=== PATIENT | male | born 1970 | race Two or more races ===

== ENCOUNTER 2018-08-22 13:00 | Outpatient (CLI) | payer MEDICARE, MEDICAID ==
[~2018-08-22 13:00] MED LIST: ALBU6.7H3 IH; BENZ1TAB7 PO; CLA10T PO; COL100C PO; ESOM40CA PO; FLO0.4C PO; FLUO20CA39 PO; HAL5T PO; METF500T PO; MILK200C4 PO; MULT-342 PO; NORCO10T PO; PAT0.1OS OP; QUET-1 PO; RES15C PO; SITA1TAB2 PO
[2018-08-22 14:27] LABS: BASOPHILS % (AUTO) 0.4 % (0-1); EOSINOPHILS # (AUTO) 0.3 X10'3 (0-0.9); HEMATOCRIT 41.4 % (42.0-52.0); HEMOGLOBIN 13.8 g/dl (14.0-17.9); LYMPHOCYTES # (AUTO) 2.6 X10'3 (1.1-4.8); LYMPHOCYTES % (AUTO) 36.8 % (21-51); MEAN CORPUSCULAR HEMOGLOBIN 27.1 PG (27.0-31.0); MEAN CORPUSCULAR HGB CONC 33.3 % (33.0-36.5); MEAN CORPUSCULAR VOLUME 81.4 FL (78-98); MEAN PLATELET VOLUME 8.6 FL (7.4-10.4); MONOCYTES # (AUTO) 0.5 X10'3 (0-0.9); MONOCYTES % (AUTO) 7.4 % (2-12); NEUTROPHILS # (AUTO) 3.6 X10'3 (1.8-7.7); NEUTROPHILS % (AUTO) 51.4 % (42-75); PLATELET COUNT 212 X10'3 (140-440); RED BLOOD COUNT 5.08 X10'6 (4.70-6.10); RED CELL DISTRIBUTION WIDTH 14.6 % (11.5-14.5); WHITE BLOOD COUNT 7.1 X10'3 (4.5-11.0)
[2018-08-22 14:50] LABS: INR 1.1 INR; PARTIAL THROMBOPLASTIN TIME 26 SECONDS (22-32); PROTHROMBIN TIME 10.7 SECONDS (9.0-12.0)
[2018-08-22 14:57] LABS: ALANINE AMINOTRANSFERASE 37 U/L (12-78); ALBUMIN 4.5 G/DL (3.4-5.0); ALBUMIN/GLOBULIN RATIO 1.5 (1.1-1.5); ALKALINE PHOSPHATASE 76 IU/L (46-116); ANION GAP 11 (8-16); ASPARTATE AMINO TRANSFERASE 20 U/L (10-37); BILIRUBIN,TOTAL 0.3 MG/DL (0.1-1.0); BLOOD UREA NITROGEN 9 MG/DL (7-18); BUN/CREATININE RATIO 10.5 (5.4-32.0); CALCIUM 8.7 MG/DL (8.5-10.1); CHLORIDE 99 MMOL/L (99-107); CREATININE 0.86 MG/DL (0.60-1.10); GLUCOSE 110 MG/DL (70-104); SODIUM 137 MMOL/L (135-145); TOTAL CARBON DIOXIDE 26.9 MMOL/L (24-32); TOTAL PROTEIN 7.6 G/DL (6.4-8.2); eGFR > 90 ML/MIN
[2018-08-22 15:18] LABS: PLATELET FUNCTION (ADP) 136 SECONDS (63-104)
== END 2018-08-22 23:59 | disposition home or self-care (01) ==
LOC: LAB 13:00
PROVIDERS: ATTEND Otolaryngology
DX: D69.1 Qualitative platelet defects (principal); I10 Essential (primary) hypertension; J45.909 Unspecified asthma, uncomplicated; E11.9 Type 2 diabetes mellitus without complications; Z88.8 Allergy status to other drugs, medicaments and biological substances; Z79.899 Other long term (current) drug therapy
CPT/HCPCS: 36415; 80053; 85025; 85576; 85610; 85730

== ENCOUNTER 2018-11-04 13:44 | Outpatient (CLI) | payer MEDICARE, MEDICAID ==
[2018-11-04 14:32] LABS: BASOPHILS % (AUTO) 0.4 % (0-1); EOSINOPHILS # (AUTO) 0.2 X10'3 (0-0.9); EOSINOPHILS % (AUTO) 2.2 % (0-6); HEMATOCRIT 38.6 % (42.0-52.0); HEMOGLOBIN 12.9 g/dl (14.0-17.9); LYMPHOCYTES # (AUTO) 2.5 X10'3 (1.1-4.8); LYMPHOCYTES % (AUTO) 27.6 % (21-51); MEAN CORPUSCULAR HEMOGLOBIN 26.6 PG (27.0-31.0); MEAN CORPUSCULAR HGB CONC 33.4 g/dL (33.0-36.5); MEAN CORPUSCULAR VOLUME 79.6 FL (78-98); MEAN PLATELET VOLUME 7.7 FL (7.4-10.4); MONOCYTES # (AUTO) 0.8 X10'3 (0-0.9); MONOCYTES % (AUTO) 8.7 % (2-12); NEUTROPHILS # (AUTO) 5.5 X10'3 (1.8-7.7); NEUTROPHILS % (AUTO) 61.1 % (42-75); PLATELET COUNT 270 X10'3 (140-440); RED BLOOD COUNT 4.85 X10'6 (4.70-6.10); RED CELL DISTRIBUTION WIDTH 13.7 % (11.5-14.5)
[2018-11-04 14:43] LABS: PARTIAL THROMBOPLASTIN TIME 32 SECONDS (22-32); PROTHROMBIN TIME 10.6 SECONDS (9.0-12.0)
[2018-11-04 14:47] LABS: ALANINE AMINOTRANSFERASE 32 U/L (12-78); ALBUMIN 4.2 G/DL (3.4-5.0); ALBUMIN/GLOBULIN RATIO 1.2 (1.1-1.5); ALKALINE PHOSPHATASE 99 IU/L (46-116); ANION GAP 7 (8-16); ASPARTATE AMINO TRANSFERASE 18 U/L (10-37); BILIRUBIN,TOTAL 0.2 MG/DL (0.1-1.0); BLOOD UREA NITROGEN 11 MG/DL (7-18); BUN/CREATININE RATIO 13.4 (5.4-32.0); CALCIUM 9.2 MG/DL (8.5-10.1); CHLORIDE 98 MMOL/L (99-107); CREATININE 0.82 MG/DL (0.60-1.10); GLUCOSE 122 MG/DL (70-104); POTASSIUM 4.2 MMOL/L (3.5-5.1); SODIUM 133 MMOL/L (135-145); TOTAL CARBON DIOXIDE 27.9 MMOL/L (24-32); TOTAL PROTEIN 7.8 G/DL (6.4-8.2); eGFR > 90 ML/MIN
[2018-11-04 16:37] LABS: PLATELET FUNCTION (ADP) 183 SECONDS (63-104)
== END 2018-11-04 23:59 | disposition home or self-care (01) ==
LOC: LAB 13:44
PROVIDERS: ATTEND Otolaryngology
DX: D69.1 Qualitative platelet defects (principal); I10 Essential (primary) hypertension; J45.909 Unspecified asthma, uncomplicated; E11.9 Type 2 diabetes mellitus without complications; Z87.891 Personal history of nicotine dependence; Z88.8 Allergy status to other drugs, medicaments and biological substances
CPT/HCPCS: 36415; 80053; 85025; 85576; 85610; 85730

== ENCOUNTER 2018-11-10 01:48 | Emergency (ER) | payer MEDICARE, MEDICAID ==
[~2018-11-10] VITALS: Ht 175.3 cm; Wt 118.2 kg
[2018-11-10] MEDS ORDERED: normal saline 1000ML IV soln IVB ONE (02:00)
[2018-11-10] MEDS ORDERED: naloxone 2mg/2ml inj IV ONE (02:00)
[2018-11-10 02:48] LABS: BASOPHILS # (AUTO) 0.1 X10'3 (0-0.2); BASOPHILS % (AUTO) 0.5 % (0-1); EOSINOPHILS # (AUTO) 0.3 X10'3 (0-0.9); HEMATOCRIT 36.9 % (42.0-52.0); HEMOGLOBIN 12.2 g/dl (14.0-17.9); LYMPHOCYTES # (AUTO) 3.2 X10'3 (1.1-4.8); LYMPHOCYTES % (AUTO) 22.7 % (21-51); MEAN CORPUSCULAR HEMOGLOBIN 26.5 PG (27.0-31.0); MEAN CORPUSCULAR VOLUME 80.3 FL (78-98); MEAN PLATELET VOLUME 8.1 FL (7.4-10.4); MONOCYTES # (AUTO) 1.5 X10'3 (0-0.9); MONOCYTES % (AUTO) 10.4 % (2-12); NEUTROPHILS % (AUTO) 64.4 % (42-75); PLATELET COUNT 309 X10'3 (140-440); RED CELL DISTRIBUTION WIDTH 13.9 % (11.5-14.5)
[2018-11-10 03:02] LABS: ALANINE AMINOTRANSFERASE 41 U/L (12-78); ALBUMIN 3.9 G/DL (3.4-5.0); ALKALINE PHOSPHATASE 96 IU/L (46-116); ANION GAP 9 (8-16); ASPARTATE AMINO TRANSFERASE 29 U/L (10-37); BILIRUBIN,TOTAL 0.3 MG/DL (0.1-1.0); BLOOD UREA NITROGEN 17 MG/DL (7-18); BUN/CREATININE RATIO 20.5 (5.4-32.0); CALCIUM 8.8 MG/DL (8.5-10.1); CHLORIDE 96 MMOL/L (99-107); CREATININE 0.83 MG/DL (0.60-1.10); ETHANOL < 0.010 GM/DL (0.0-0.010); GLUCOSE 143 MG/DL (70-104); POTASSIUM 3.4 MMOL/L (3.5-5.1); SODIUM 132 MMOL/L (135-145); TOTAL CARBON DIOXIDE 27.3 MMOL/L (24-32); TOTAL PROTEIN 7.8 G/DL (6.4-8.2); eGFR > 90 ML/MIN
--- NOTE | 2018-11-10 03:03 | NUR ---
PT HAD SLEEP MEDICATIONS OF COGENTIN AND SEROZAKL RC AND HIS MEDICATIONS ARE LOCKED UP BY HIS WHO SAYS HE COULDN'T HAVE OD.
[2018-11-10 03:04] LABS: CLARITY,URINE CLEAR (Clear); COLOR,URINE YELLOW (Yellow); GLUCOSE, URINE NEGATIVE (Neg); KETONES,URINE NEGATIVE (Neg); LEUKOCYTE ESTERASE ,URINE NEGATIVE (Neg); NITRITES, URINE NEGATIVE (Neg); OCCULT BLOOD,URINE NEGATIVE (Neg); PH,URINE 5.5 (4.8-8.0); PROTEIN,URINE TRACE mg/dl (Neg); UROBILINOGEN,URINE 0.2 E.U/dL (0.2-1.0)
[2018-11-10 03:06] LABS: INR 1.1 INR; PARTIAL THROMBOPLASTIN TIME 30 SECONDS (22-32); PROTHROMBIN TIME 10.9 SECONDS (9.0-12.0)
--- NOTE | 2018-11-10 03:11 | NUR ---
PER PT , PT HAS BEEN HAVING PERIODS OF INSOMNIA FOR PAST 5 DAYS, HE ALSO HAS A HX OF SCHIZOPRENIA, PT REPORTS PATIENT HAS BEEN HAVING BIZARE BEHAVIOR THE PAST FEW NIGHTS INCLUDING HALLIUCINATIONS. SHE DIDN'T GIVE HIM ALL HIS HS MEDICATIONS BECAUSE SHE WAS WORRIED HE WOULD STOP BREATHING. PT IS STARTING TO WAKE UP MORE AND IS NOW OPENING HIS EYE SPONTANEOUSLY.
[2018-11-10 03:12] LABS: UA COLLECTION TYPE STRAIGHT CATH
[2018-11-10 03:13] LABS: BACTERIA,URINE FEW /HPF (Neg); MUCUS STRANDS FEW /LPF (Neg); RBC,URINE 0-2 /HPF (0-2); SQUAMOUS EPITHELIAL CELL,UR FEW /LPF (FEW); WBC,URINE 0-4 /HPF (0-4)
[2018-11-10 03:17] LABS: URINE AMPHETAMINE SCREEN NEGATIVE (Neg); URINE BARBITUATE SCREEN NEGATIVE (Neg); URINE BENZODIAZEPINES SCREEN NEGATIVE (Neg); URINE CANNABINOID SCREEN NEGATIVE (Neg); URINE COCAINE SCREEN NEGATIVE (Neg); URINE METHADONE SCREEN NEGATIVE (Neg); URINE OPIATE SCREEN NEGATIVE (Neg); URINE PHENCYCLIDINE SCREEN NEGATIVE (Neg)
--- NOTE | 2018-11-10 03:44 | NUR ---
PT PHONE NUMBER : [phone]
[2018-11-10] MEDS ORDERED: CefTRIAXone/D5W-Rocephin 1gm 50 ML IV ONE (03:45)
[2018-11-10] MEDS ORDERED: ARMO250T4 PO (03:49)
[2018-11-10] MEDS ORDERED: NAPR-56 PO (03:49)
[2018-11-10] MEDS ORDERED: ARIP5TAB4 PO (03:49)
[2018-11-10] MEDS ORDERED: BUSP10TA11 PO (03:49)
[2018-11-10] MEDS ORDERED: DIVA500T9 PO (03:49)
[2018-11-10] MEDS ORDERED: LINA290C PO (03:49)
[2018-11-10] MEDS ORDERED: DUTA0.5C40 PO (03:49)
[2018-11-10] MEDS ORDERED: PER10325T PO (03:49)
[2018-11-10] MEDS ORDERED: CEPH250T PO (03:49)
[2018-11-10] MEDS ORDERED: normal saline 1000ML IV soln IV ONE (03:55)
[2018-11-10] MEDS ORDERED: clindamycin 600mg/D5W 50ml 50 ML IV ONE (03:55)
[2018-11-10 04:21] LABS: ABG BASE EXCESS -0.6 mmol/L (-2.0-3.0); ABG HCO3 24.3 mmol/L (22.0-26.0); ABG OXYGEN SATURATION 95.1 % (95-98); ABG PH (T) 7.399 (7.350-7.450); ABG PO2 (T) 91.5 mmHg (83-108); FCOHb 0.1 % (0.5-1.5); FMetHb 0.3 % (0.3-1.12); FO2Hb 94.7 % (94-100); PATIENT TEMPERATURE 36.6; TOTAL HEMOGLOBIN 11.8 G/dl (14.0-18.0)
--- NOTE | 2018-11-10 04:47 | NUR ---
MD LEE AT BEDSIDE FOR EVALUATION, PER MD LEE PT DOESN'T MEET INPATIENT CRITERIA AT THIS TIME.
--- NOTE | 2018-11-10 05:18 | NUR ---
PT MORE ALERT AND IS REQUESTING TO GO HOME, PT APPEARS TO BE LUCID, GCS 14, HE STATES HE HAS BEEN HAVING INSOMNIA AND TOOK HIS NIGHT TIME PILLS. PT DENIES SI.
[2018-11-10 05:31] VITALS: BP 179/97
[2018-11-10] MEDS ORDERED: iohexol 300mg/ml 100ml inj. ONE (05:41)
--- NOTE | 2018-11-10 07:05 | NUR ---
PATIENT AWAKE AND ALERT. TRYING TO GET OFF GURNEY AND STATES HE NEEDS TO GO TO THE BATHROOM FOR BOWEL MOVEMENT. PULLED OUT IV AND BLEEDING STOPPED WITH GAUZE DRESSING. CASILLAS CATH REMAINS INTACT AND DRAINING LARGE AMOUNTS OF YELLOW URINE. RESP SONOROUS AND SNORTY. PATIENT STATES HE HAD SURGERY ON HIS SINUSES A FEW DAYS AGO AND USUALLY SLEEPS WITH A CPAP AT HOME. COOPERATIVE WITH CARE. WALKED TO THE BATHROOM WITH STEADY GAIT.
[2018-11-10] MEDS ORDERED: albuterol 2.5 MG/3 ML nebule NEB ONE (07:50)
[2018-11-10] MEDS ORDERED: AMOX-422 PO (09:36)
--- NOTE | 2018-11-10 10:45 | NUR ---
HERE FOR DISCHARGE. DISCUSSED DC INSTRUCTIONS WITH PATIENT AND . DEPARTED AMB IN GOOD CONDITION.
== END 2018-11-10 10:48 | disposition home or self-care (01) ==
LOC: ER 01:49
DX: R41.82 Altered mental status, unspecified (principal); D72.829 Elevated white blood cell count, unspecified; F20.0 Paranoid schizophrenia; R22.0 Localized swelling, mass and lump, head; G89.29 Other chronic pain; F31.9 Bipolar disorder, unspecified; Z88.8 Allergy status to other drugs, medicaments and biological substances; Z79.899 Other long term (current) drug therapy
CPT/HCPCS: 36415; 36600; 70450; 70487; 71045; 80053; 80305; 80320; 81001; 82803; 82948; 83605; 85018; 85025; 85610; 85730; 87040; 93005; 94640; 94760; 96361; 96365; 96368; 96375; 99285; J0696; J2310; J7030; P9612; Q9967; 99284; J3490

== ENCOUNTER 2019-01-27 20:33 | Emergency (ER) | payer MEDICARE, MEDICAID ==
[~2019-01-27] VITALS: Ht 167.6 cm; Wt 100.0 kg
[~2019-01-27 20:33] MED LIST changes: -ALBU6.7H3 IH; +ARIP5TAB4 PO; +ARMO250T4 PO; +BUSP10TA11 PO; +CEPH250T PO; -COL100C PO; +DIVA500T9 PO; +DUTA0.5C40 PO; -FLO0.4C PO; +LINA290C PO; -METF500T PO; +NAPR-56 PO; -NORCO10T PO; -PAT0.1OS OP; +PER10325T PO; -RES15C PO; -SITA1TAB2 PO
[2019-01-27 21:24] LABS: BASOPHILS # (AUTO) 0.1 X10'3 (0-0.2); BASOPHILS % (AUTO) 0.4 % (0-1); EOSINOPHILS # (AUTO) 0.2 X10'3 (0-0.9); EOSINOPHILS % (AUTO) 1.5 % (0-6); HEMATOCRIT 35.7 % (42.0-52.0); HEMOGLOBIN 12.2 g/dl (14.0-17.9); LYMPHOCYTES # (AUTO) 1.7 X10'3 (1.1-4.8); LYMPHOCYTES % (AUTO) 13.9 % (21-51); MEAN CORPUSCULAR HEMOGLOBIN 27.5 PG (27.0-31.0); MEAN CORPUSCULAR HGB CONC 34.2 g/dL (33.0-36.5); MEAN CORPUSCULAR VOLUME 80.3 FL (78-98); MEAN PLATELET VOLUME 8.5 FL (7.4-10.4); MONOCYTES # (AUTO) 1.3 X10'3 (0-0.9); MONOCYTES % (AUTO) 10.5 % (2-12); NEUTROPHILS # (AUTO) 9.2 X10'3 (1.8-7.7); NEUTROPHILS % (AUTO) 73.7 % (42-75); PLATELET COUNT 179 X10'3 (140-440); RED BLOOD COUNT 4.45 X10'6 (4.70-6.10); RED CELL DISTRIBUTION WIDTH 15.4 % (11.5-14.5); WHITE BLOOD COUNT 12.4 X10'3 (4.5-11.0)
[2019-01-27 21:42] LABS: PARTIAL THROMBOPLASTIN TIME 29 SECONDS (22-32)
[2019-01-27 21:46] LABS: ALANINE AMINOTRANSFERASE 35 U/L (12-78); ALBUMIN 3.8 G/DL (3.4-5.0); ALBUMIN/GLOBULIN RATIO 1.2 (1.1-1.5); ALKALINE PHOSPHATASE 93 IU/L (46-116); ANION GAP 8 (8-16); ASPARTATE AMINO TRANSFERASE 17 U/L (10-37); BILIRUBIN,TOTAL 0.3 MG/DL (0.1-1.0); BLOOD UREA NITROGEN 14 MG/DL (7-18); BUN/CREATININE RATIO 15.6 (5.4-32.0); CALCIUM 8.4 MG/DL (8.5-10.1); CHLORIDE 102 MMOL/L (99-107); GLUCOSE 154 MG/DL (70-104); POTASSIUM 3.8 MMOL/L (3.5-5.1); SODIUM 135 MMOL/L (135-145); TOTAL CARBON DIOXIDE 24.6 MMOL/L (24-32); eGFR 89 ML/MIN
[2019-01-27] MEDS ORDERED: DOXYCYCLINE 100MG CAPSULE PO STA (22:13)
[2019-01-27] MEDS ORDERED: normal saline 1000ML IV soln IVB ONE ×2 (22:15→23:25)
[2019-01-27] MEDS ORDERED: ibuprofen tablet 400 MG TABLET PO ONE (22:15)
--- NOTE | 2019-01-27 22:33 | NUR ---
PT RESTING IN BED,IVB N.S IINFUSING RGT NOW,PT AT BEDSIDE,PT HAS 101.2 FEVER.
[2019-01-27 23:55] LABS: CLARITY,URINE CLEAR (Clear); COLOR,URINE YELLOW (Yellow); GLUCOSE, URINE NEGATIVE (Neg); KETONES,URINE NEGATIVE (Neg); LEUKOCYTE ESTERASE ,URINE NEGATIVE (Neg); NITRITES, URINE NEGATIVE (Neg); OCCULT BLOOD,URINE NEGATIVE (Neg); PROTEIN,URINE NEGATIVE (Neg)
[2019-01-27 23:56] LABS: UA COLLECTION TYPE CLN CATCH MIDSTREAM
--- NOTE | 2019-01-28 00:46 | NUR ---
PT WALKING AROUND THE [address] PER DR MCGUIRE ORDERS, IS WALKING WITH THE PT.
[2019-01-28] MEDS ORDERED: DOXY100C2 PO (01:04)
[2019-01-28 01:28] VITALS: BP 146/84
== END 2019-01-28 01:31 | disposition home or self-care (01) ==
LOC: ER 20:34
DX: J18.9 Pneumonia, unspecified organism (principal); E86.0 Dehydration; G89.29 Other chronic pain; F31.9 Bipolar disorder, unspecified; F20.9 Schizophrenia, unspecified; Z86.19 Personal history of other infectious and parasitic diseases; Z88.8 Allergy status to other drugs, medicaments and biological substances; Z79.2 Long term (current) use of antibiotics; Z79.899 Other long term (current) drug therapy
CPT/HCPCS: 36415; 71046; 80053; 81003; 83605; 84145; 84484; 85025; 85610; 85730; 87040; 93005; 96360; 99284; J7030

== ENCOUNTER 2019-10-16 10:51 | Observation (INO) | payer MEDICARE, MEDICAID ==
[~2019-10-16] VITALS: Ht 170.2 cm; Wt 101.3 kg
[~2019-10-16 10:51] MED LIST changes: +ARIP5TAB14 PO; -ARIP5TAB4 PO
[2019-10-16] MEDS ORDERED: aspirin 81mg tab.chew PO ONE (11:10)
[2019-10-16 11:45] LABS: BASOPHILS % (AUTO) 0.4 % (0-1); EOSINOPHILS # (AUTO) 0.2 X10'3 (0-0.9); EOSINOPHILS % (AUTO) 3.2 % (0-6); LYMPHOCYTES # (AUTO) 2.2 X10'3 (1.1-4.8); LYMPHOCYTES % (AUTO) 38.5 % (21-51); MEAN CORPUSCULAR HEMOGLOBIN 27.7 PG (27.0-31.0); MEAN CORPUSCULAR HGB CONC 34.2 g/dL (33.0-36.5); MEAN PLATELET VOLUME 8.4 FL (7.4-10.4); MONOCYTES # (AUTO) 0.6 X10'3 (0-0.9); MONOCYTES % (AUTO) 11.1 % (2-12); NEUTROPHILS # (AUTO) 2.7 X10'3 (1.8-7.7); NEUTROPHILS % (AUTO) 46.8 % (42-75); PLATELET COUNT 179 X10'3 (140-440); RED BLOOD COUNT 4.69 X10'6 (4.70-6.10); RED CELL DISTRIBUTION WIDTH 14.6 % (11.5-14.5); WHITE BLOOD COUNT 5.8 X10'3 (4.5-11.0)
[2019-10-16 11:59] LABS: ALANINE AMINOTRANSFERASE 49 U/L (12-78); ALBUMIN 4.5 G/DL (3.4-5.0); ALBUMIN/GLOBULIN RATIO 1.7 (1.1-1.5); ALKALINE PHOSPHATASE 82 IU/L (46-116); ANION GAP 7 (8-16); ASPARTATE AMINO TRANSFERASE 27 U/L (10-37); BILIRUBIN,TOTAL 0.4 MG/DL (0.1-1.0); BLOOD UREA NITROGEN 10 MG/DL (7-18); BUN/CREATININE RATIO 10.6 (5.4-32.0); CHLORIDE 104 MMOL/L (99-107); CREATININE 0.94 MG/DL (0.60-1.10); GLUCOSE 115 MG/DL (70-104); POTASSIUM 4.3 MMOL/L (3.5-5.1); SODIUM 140 MMOL/L (135-145); TOTAL CARBON DIOXIDE 28.7 MMOL/L (24-32); TOTAL PROTEIN 7.2 G/DL (6.4-8.2); eGFR 85 ML/MIN
[2019-10-16] MEDS ORDERED: QUET300T19 PO (13:14)
[2019-10-16] MEDS ORDERED: ARMO200T PO (13:14)
[2019-10-16] MEDS ORDERED: ARIP30TA3 PO (13:14)
[2019-10-16] MEDS ORDERED: morphine 2 MG/ML inj. syringe IV PRN ×2 (13:20)
[2019-10-16] MEDS ORDERED: HYDROcodone/acetaminophen 5mg/325mg tablet PO PRN (13:20)
[2019-10-16] MEDS ORDERED: magnesium hydroxide 30ml (MOM) UD suspension PO PRN (13:20)
[2019-10-16] MEDS ORDERED: ondansetron/PF 4mg/2ml inj IV PRN (13:20)
[2019-10-16] MEDS ORDERED: mag hydrox/Alum hydrox/simeth 30ml oral suspension PO PRN (13:20)
[2019-10-16] MEDS ORDERED: nitroGLYCERIN 0.4mg SUBLingual tab SL PRN (13:20)
[2019-10-16] MEDS ORDERED: acetaminophen 325mg tablet PO PRN ×2 (13:20)
[2019-10-16] MEDS ORDERED: ALBU18HF2 INH (13:21)
[2019-10-16] MEDS ORDERED: BUPR-344 PO (13:21)
--- NOTE | 2019-10-16 14:40 | NUR ---
Per Dr. Fitzgerald, pt does not want to be admitted to hospital. Notified primary RN.
[2019-10-16 15:00] VITALS: BP 154/87
--- NOTE | 2019-10-16 15:22 | NUR ---
Patient in room ED 4. I have received report from HERNAN Steinberg and had the opportunity to ask questions and assume patient care. Pt arrived to rm [id number]
--- NOTE | 2019-10-16 16:21 | NUR ---
[id number] MESSAGE: New admit Ji Saenz rm [id number] meds need to be reconciled- a lot of psych meds HERNAN Singer ext [phone]
[2019-10-16] MEDS ORDERED: furosemide 20 MG/2 ML vial IV STA (16:32)
[2019-10-16] MEDS ORDERED: albuterol 2.5 MG/3 ML nebule NEB PRN (16:35)
[2019-10-16] MEDS ORDERED: oxyCODONE/APAP 10/325mg tablet PO PRN (16:35)
--- NOTE | 2019-10-16 17:12 | NUR ---
[id number] MESSAGE: Ji Saenz uses [facility] @ [facility]. I will input order HERNAN Singer [phone]
[2019-10-16] MEDS: armodafinil 50mg tablet PO SCH (17:35)
--- NOTE | 2019-10-16 17:50 | NUR ---
advised to bring in armodafinil from home as there is no [facility] suitable exchange
[2019-10-16 18:00] VITALS: BP 160/100
--- NOTE | 2019-10-16 18:28 | NUR ---
Problems reprioritized. Patient report given, questions answered & plan of care reviewed with HERNAN Gutiérrez.
[2019-10-16] MEDS: busPIRone 5mg tablet PO SCH (20:40)
[2019-10-16] MEDS: benztropine 1mg tablet PO SCH (20:40)
[2019-10-16] MEDS: haloperidol 5mg tablet PO SCH (20:41)
[2019-10-16] MEDS: buPROPion SR 150mg tablet PO SCH (20:41)
[2019-10-16] MEDS: quetiapine 100mg tablet PO SCH (20:41)
[2019-10-16] MEDS: divalproex sodium 500mg tablet.DR PO SCH (20:45)
[2019-10-16 22:00] VITALS: BP 137/84
[2019-10-17 02:00] VITALS: BP 132/61
[2019-10-17 06:00] VITALS: BP 127/59
--- NOTE | 2019-10-17 06:11 | NUR ---
Problems reprioritized. Patient report given, questions answered & plan of care reviewed with Lucrecia BECERRA.
[2019-10-17 06:32] LABS: BASOPHILS % (AUTO) 0.5 % (0-1); EOSINOPHILS # (AUTO) 0.3 X10'3 (0-0.9); EOSINOPHILS % (AUTO) 3.6 % (0-6); HEMATOCRIT 37.6 % (42.0-52.0); HEMOGLOBIN 12.9 g/dl (14.0-17.9); LYMPHOCYTES # (AUTO) 3.1 X10'3 (1.1-4.8); LYMPHOCYTES % (AUTO) 39.8 % (21-51); MEAN CORPUSCULAR HGB CONC 34.3 g/dL (33.0-36.5); MEAN CORPUSCULAR VOLUME 81.7 FL (78-98); MEAN PLATELET VOLUME 8.8 FL (7.4-10.4); MONOCYTES # (AUTO) 0.7 X10'3 (0-0.9); MONOCYTES % (AUTO) 8.4 % (2-12); NEUTROPHILS # (AUTO) 3.7 X10'3 (1.8-7.7); NEUTROPHILS % (AUTO) 47.7 % (42-75); PLATELET COUNT 188 X10'3 (140-440); RED CELL DISTRIBUTION WIDTH 14.9 % (11.5-14.5); WHITE BLOOD COUNT 7.8 X10'3 (4.5-11.0)
[2019-10-17 06:42] LABS: ALBUMIN 3.9 G/DL (3.4-5.0); ANION GAP 8 (8-16); BLOOD UREA NITROGEN 13 MG/DL (7-18); BUN/CREATININE RATIO 14.1 (5.4-32.0); CALCIUM 8.6 MG/DL (8.5-10.1); CHLORIDE 102 MMOL/L (99-107); CREATININE 0.92 MG/DL (0.60-1.10); GLUCOSE 102 MG/DL (70-104); POTASSIUM 4.2 MMOL/L (3.5-5.1); SODIUM 139 MMOL/L (135-145); TOTAL CARBON DIOXIDE 29.3 MMOL/L (24-32); eGFR 87 ML/MIN
[2019-10-17] MEDS: pantoprazole 40mg Tablet.DR PO SCH (07:30)
[2019-10-17 07:56] LABS: TROPONIN I < 0.04 NG/ML (0.0-0.05)
[2019-10-17] MEDS: armodafinil 50mg tablet PO SCH (08:00)
[2019-10-17] MEDS: LINACLOTIDE 290 MCG PO SCH (08:00)
[2019-10-17] MEDS: busPIRone 5mg tablet PO SCH ×2 (09:13→19:41)
[2019-10-17] MEDS: benztropine 1mg tablet PO SCH ×2 (09:13→19:40)
[2019-10-17] MEDS: buPROPion SR 150mg tablet PO SCH ×2 (09:13→19:41)
[2019-10-17] MEDS: aspirin 81mg tablet.DR PO SCH (09:14)
[2019-10-17] MEDS: loratadine 10mg tablet PO SCH (09:14)
[2019-10-17] MEDS: ARIPIPRAZOLE 15 MG TABLET PO SCH (09:14)
[2019-10-17] MEDS: enoxaparin 40mg/0.4ml syringe SUBCUT SCH (09:15)
[2019-10-17] MEDS: divalproex sodium 500mg tablet.DR PO SCH ×2 (09:16→09:18)
[2019-10-17] MEDS: dutasteride 0.5 MG capsule PO SCH (09:17)
[2019-10-17] MEDS: FLUoxetine 20mg capsule PO SCH (09:31)
[2019-10-17] MEDS: multivitamins, therapeutics tablet PO SCH (09:31)
[2019-10-17] MEDS ORDERED: FLU VACC QS2019-20 36MOS UP/PF 60 MCG/0.5 ML SYRINGE IMVAC ONE (10:00)
[2019-10-17 11:00] VITALS: BP 137/88
[2019-10-17] MEDS: furosemide 20 MG/2 ML vial IV SCH ×2 (12:20→19:40)
[2019-10-17] MEDS ORDERED: aminophylline 250mg/10ml inj. IV PRN (14:40)
[2019-10-17] MEDS ORDERED: regadenoson 0.4mg/5ml syringe IV PRN (14:40)
[2019-10-17] MEDS ORDERED: metoprolol tartrate 1mg/ml inj IV PRN (14:40)
[2019-10-17] MEDS ORDERED: nitroGLYCERIN 0.4mg SUBLingual tab SL PRN (14:40)
[2019-10-17 15:00] VITALS: BP 121/51
[2019-10-17 18:00] VITALS: BP 141/85
--- NOTE | 2019-10-17 18:00 | NUR ---
Patient in room PCU 3023. I have received report from Tanmay BECERRA and had the opportunity to ask questions and assume patient care.
--- NOTE | 2019-10-17 18:27 | NUR ---
Problems reprioritized. Patient report given, questions answered & plan of care reviewed with HERNAN Yang.
[2019-10-17] MEDS: quetiapine 100mg tablet PO SCH (19:40)
[2019-10-17] MEDS: haloperidol 5mg tablet PO SCH (19:41)
[2019-10-17 22:00] VITALS: BP 135/83
[2019-10-18] VITALS (9 sets, daily range): BP systolic 103–146; BP diastolic 71–85
[2019-10-18 06:25] LABS: BASOPHILS % (AUTO) 0.4 % (0-1); EOSINOPHILS # (AUTO) 0.4 X10'3 (0-0.9); HEMATOCRIT 40.1 % (42.0-52.0); HEMOGLOBIN 13.5 g/dl (14.0-17.9); LYMPHOCYTES # (AUTO) 3.1 X10'3 (1.1-4.8); LYMPHOCYTES % (AUTO) 35.1 % (21-51); MEAN CORPUSCULAR HEMOGLOBIN 27.5 PG (27.0-31.0); MEAN CORPUSCULAR HGB CONC 33.6 g/dL (33.0-36.5); MEAN CORPUSCULAR VOLUME 81.6 FL (78-98); MEAN PLATELET VOLUME 8.7 FL (7.4-10.4); NEUTROPHILS # (AUTO) 4.4 X10'3 (1.8-7.7); NEUTROPHILS % (AUTO) 49.5 % (42-75); PLATELET COUNT 188 X10'3 (140-440); RED BLOOD COUNT 4.91 X10'6 (4.70-6.10); RED CELL DISTRIBUTION WIDTH 14.8 % (11.5-14.5); WHITE BLOOD COUNT 8.9 X10'3 (4.5-11.0)
--- NOTE | 2019-10-18 06:28 | NUR ---
Problems reprioritized. Patient report given, questions answered & plan of care reviewed with Christofer BECERRA.
--- NOTE | 2019-10-18 06:29 | NUR ---
Patient in room PCU 3011. I have received report from Celia BECERRA and had the opportunity to ask questions and assume patient care.
[2019-10-18 06:53] LABS: ALBUMIN 3.9 G/DL (3.4-5.0); ANION GAP 6 (8-16); BLOOD UREA NITROGEN 19 MG/DL (7-18); BUN/CREATININE RATIO 17.4 (5.4-32.0); CALCIUM 8.7 MG/DL (8.5-10.1); CHLORIDE 102 MMOL/L (99-107); CREATININE 1.09 MG/DL (0.60-1.10); GLUCOSE 101 MG/DL (70-104); POTASSIUM 4.4 MMOL/L (3.5-5.1); SODIUM 140 MMOL/L (135-145); TOTAL CARBON DIOXIDE 32.3 MMOL/L (24-32); eGFR 71 ML/MIN
[2019-10-18] MEDS: benztropine 1mg tablet PO SCH (07:32)
[2019-10-18] MEDS: loratadine 10mg tablet PO SCH (07:32)
[2019-10-18] MEDS: pantoprazole 40mg Tablet.DR PO SCH (07:32)
[2019-10-18] MEDS: buPROPion SR 150mg tablet PO SCH (07:32)
[2019-10-18] MEDS: divalproex sodium 500mg tablet.DR PO SCH (07:32)
[2019-10-18] MEDS: aspirin 81mg tablet.DR PO SCH (07:32)
[2019-10-18] MEDS: ARIPIPRAZOLE 15 MG TABLET PO SCH (07:32)
[2019-10-18] MEDS: busPIRone 5mg tablet PO SCH (07:32)
[2019-10-18] MEDS: furosemide 20 MG/2 ML vial IV SCH (07:32)
[2019-10-18] MEDS: multivitamins, therapeutics tablet PO SCH (07:32)
[2019-10-18] MEDS: dutasteride 0.5 MG capsule PO SCH (07:33)
[2019-10-18] MEDS: enoxaparin 40mg/0.4ml syringe SUBCUT SCH (07:34)
[2019-10-18] MEDS: FLUoxetine 20mg capsule PO SCH (07:42)
[2019-10-18] MEDS: LINACLOTIDE 290 MCG PO SCH (07:45)
[2019-10-18] MEDS: armodafinil 50mg tablet PO SCH (07:45)
--- NOTE | 2019-10-18 11:48 | NUR ---
PAGER ID: [phone] MESSAGE: [email or web address], [facility] RESULTS ARE AVAILABLE FOR [id number], THANK YOU.
--- NOTE | 2019-10-18 14:34 | NUR ---
Patient stable for discharge per MD order. All discharge information and education reviewed with patient before signing necessary paperwork. IV discontinued with catheter in tact, cardiac monitor technician removed and returned, all patient belongings packed up and sent with patient. No new prescriptions. Preeti wheeled to lobby and left in private vehicle with spouse.
[2019-10-18] MEDS ORDERED: FURO40TA4 PO (15:03)
== END 2019-10-18 14:35 | disposition home or self-care (01) ==
LOC: ER 10:51 → ED HOLD 13:16 → PCU 3S 15:39
PROVIDERS: ADMIT Internal Medicine; ATTEND Internal Medicine
DX: R07.89 Other chest pain (principal); R06.02 Shortness of breath; G89.29 Other chronic pain; G47.00 Insomnia, unspecified; F20.9 Schizophrenia, unspecified; D64.9 Anemia, unspecified; M54.9 Dorsalgia, unspecified; N40.0 Benign prostatic hyperplasia without lower urinary tract symptoms; F41.9 Anxiety disorder, unspecified; F31.9 Bipolar disorder, unspecified; Z87.891 Personal history of nicotine dependence; Z79.899 Other long term (current) drug therapy; Z88.8 Allergy status to other drugs, medicaments and biological substances
CPT/HCPCS: 36415; 71045; 78452; 80048; 80053; 83735; 83880; 84484; 85025; 93005; 93017; 96372; 96374; 96376; 99284; A9500; G0378; J1940; J2785; J1650; Q2037

== ENCOUNTER 2020-02-12 10:41 | Emergency (ER) | payer MEDICARE, MEDICAID ==
[~2020-02-12] VITALS: Ht 167.6 cm; Wt 102.7 kg
[~2020-02-12 10:41] MED LIST changes: +ALBU18HF2 INH; +ARIP30TA3 PO; -ARIP5TAB14 PO; +ARMO200T PO; -ARMO250T4 PO; +BUPR-344 PO; -CEPH250T PO; -MILK200C4 PO; -NAPR-56 PO; -QUET-1 PO; +QUET300T19 PO
[2020-02-12] MEDS ORDERED: acetaminophen 325mg tablet PO STA (11:19)
[2020-02-12] MEDS ORDERED: normal saline 1000ML IV soln IV ONE (11:20)
[2020-02-12] MEDS ORDERED: CefTRIAXone 2gm/D5W 50ml 50 ML IV ONE (11:20)
[2020-02-12 12:10] LABS: BASOPHILS # (AUTO) 0.1 X10'3 (0-0.2); BASOPHILS % (AUTO) 0.4 % (0-1); EOSINOPHILS # (AUTO) 0.1 X10'3 (0-0.9); EOSINOPHILS % (AUTO) 0.5 % (0-6); HEMATOCRIT 40.6 % (42.0-52.0); HEMOGLOBIN 13.4 g/dl (14.0-17.9); LYMPHOCYTES # (AUTO) 1.4 X10'3 (1.1-4.8); LYMPHOCYTES % (AUTO) 9.1 % (21-51); MEAN CORPUSCULAR HEMOGLOBIN 27.3 PG (27.0-31.0); MEAN CORPUSCULAR HGB CONC 33.1 g/dL (33.0-36.5); MEAN CORPUSCULAR VOLUME 82.4 FL (78-98); MEAN PLATELET VOLUME 8.7 FL (7.4-10.4); MONOCYTES # (AUTO) 1.5 X10'3 (0-0.9); NEUTROPHILS # (AUTO) 12.2 X10'3 (1.8-7.7); PLATELET COUNT 197 X10'3 (140-440); RED BLOOD COUNT 4.93 X10'6 (4.70-6.10); RED CELL DISTRIBUTION WIDTH 14.6 % (11.5-14.5); WHITE BLOOD COUNT 15.2 X10'3 (4.5-11.0)
[2020-02-12 12:22] LABS: PARTIAL THROMBOPLASTIN TIME 28 SECONDS (22-32)
[2020-02-12 12:27] LABS: CLARITY,URINE CLEAR (Clear); COLOR,URINE YELLOW (Yellow); GLUCOSE, URINE NEGATIVE (Neg); KETONES,URINE NEGATIVE (Neg); LEUKOCYTE ESTERASE ,URINE NEGATIVE (Neg); NITRITES, URINE NEGATIVE (Neg); OCCULT BLOOD,URINE NEGATIVE (Neg); PROTEIN,URINE NEGATIVE (Neg)
[2020-02-12 12:28] LABS: UA COLLECTION TYPE CLN CATCH MIDSTREAM
[2020-02-12 12:35] LABS: ALANINE AMINOTRANSFERASE 41 U/L (12-78); ALBUMIN 4.6 G/DL (3.4-5.0); ALBUMIN/GLOBULIN RATIO 1.4 (1.1-1.5); ALKALINE PHOSPHATASE 78 IU/L (46-116); ANION GAP 7 (8-16); ASPARTATE AMINO TRANSFERASE 22 U/L (10-37); BILIRUBIN,TOTAL 0.6 MG/DL (0.1-1.0); BLOOD UREA NITROGEN 13 MG/DL (7-18); BUN/CREATININE RATIO 10.8 (5.4-32.0); CALCIUM 9.4 MG/DL (8.5-10.1); CHLORIDE 102 MMOL/L (99-107); GLUCOSE 129 MG/DL (70-104); MAGNESIUM 1.7 MG/DL (1.5-2.4); POTASSIUM 4.4 MMOL/L (3.5-5.1); SODIUM 139 MMOL/L (135-145); TOTAL CARBON DIOXIDE 29.7 MMOL/L (24-32); TOTAL PROTEIN 7.8 G/DL (6.4-8.2); eGFR 64 ML/MIN
[2020-02-12 13:18] VITALS: BP 137/80
[2020-02-12] MEDS ORDERED: AZIT250T29 PO (14:19)
== END 2020-02-12 14:38 | disposition home or self-care (01) ==
LOC: ER 10:42
DX: J18.9 Pneumonia, unspecified organism (principal); F31.9 Bipolar disorder, unspecified; F20.9 Schizophrenia, unspecified; Z86.19 Personal history of other infectious and parasitic diseases; Z72.89 Other problems related to lifestyle; Z88.8 Allergy status to other drugs, medicaments and biological substances; Z79.899 Other long term (current) drug therapy
CPT/HCPCS: 36415; 71045; 80053; 81003; 83605; 83735; 84145; 85025; 85610; 85730; 87040; 93005; 96365; 96366; 99285; J0696; J7030

== ENCOUNTER 2021-12-26 06:09 | Day surgery (SDC) | payer MEDICARE, MEDICAID ==
[2021-12-19 15:31] LABS: BASOPHILS % (AUTO) 0.3 % (0-1); EOSINOPHILS # (AUTO) 0.3 X10'3 (0-0.9); EOSINOPHILS % (AUTO) 3.6 % (0-6); LYMPHOCYTES # (AUTO) 2.4 X10'3 (1.1-4.8); LYMPHOCYTES % (AUTO) 32.7 % (21-51); MEAN CORPUSCULAR HEMOGLOBIN 26.7 PG (27.0-31.0); MEAN CORPUSCULAR HGB CONC 33.7 g/dL (33.0-36.5); MEAN CORPUSCULAR VOLUME 79.2 FL (78-98); MEAN PLATELET VOLUME 7.9 FL (7.4-10.4); MONOCYTES # (AUTO) 0.6 X10'3 (0-0.9); MONOCYTES % (AUTO) 8.5 % (2-12); NEUTROPHILS # (AUTO) 4.1 X10'3 (1.8-7.7); NEUTROPHILS % (AUTO) 54.9 % (42-75); PRE OP HEMATOCRIT 37.8 % (42.0-52.0); PRE OP HEMOGLOBIN 12.7 g/dL (14.0-17.9); PRE OP PLATELET COUNT 201 X10'3 (140-440); RED BLOOD COUNT 4.77 X10'6 (4.70-6.10); RED CELL DISTRIBUTION WIDTH 14.9 % (11.5-14.5)
[2021-12-19 15:47] LABS: ALBUMIN/GLOBULIN RATIO 1.1 (1.1-1.5); ALKALINE PHOSPHATASE 100 IU/L (46-116); BLOOD UREA NITROGEN 10 MG/DL (7-18); BUN/CREATININE RATIO 10.8 (5.4-32.0); CALCIUM 8.6 MG/DL (8.5-10.1); CHLORIDE 99 MMOL/L (99-107); CREATININE 0.93 MG/DL (0.60-1.10); PRE OP ALT 45 U/L (30-65); PRE OP ANION GAP 11 (8-16); PRE OP AST 34 U/L (10-37); PRE OP BILIRUB, TOTAL 0.3 MG/DL (0.0-1.0); PRE OP GLUCOSE 123 MG/DL (70-104); PRE OP POTASSIUM 3.7 MMOL/L (3.4-5.1); PRE OP SODIUM 137 MMOL/L (135-145); TOTAL CARBON DIOXIDE 27.5 MMOL/L (24-32); TOTAL PROTEIN 7.6 G/DL (6.4-8.2); eGFR 85 ML/MIN
[~2021-12-26] VITALS: Ht 167.6 cm; Wt 106.0 kg
[2021-12-26] VITALS (19 sets, daily range): BP systolic 129–167; BP diastolic 77–97
[~2021-12-26 06:09] MED LIST changes: -ARIP30TA3 PO; +ATOR10TA PO; +B6/F1CAP; +BUPR-317 PO; -BUPR-344 PO; -BUSP10TA11 PO; +CALCIUM PO; +CARB1TAB35 PO; +ESOM20CA38 PO; -ESOM40CA PO; +FLUTICASONE NASAL NAS; +FURO40TA4 PO; +IMMU2VIA; +LEVO25TA82 PO; -LINA290C PO; +MELO-102 PO; +MILK175C5 PO; -MULT-342 PO; +MULTIVITAMIN MENS PO; +OMEG1CAP61 PO; -PER10325T PO; +PER5325T PO; +POTASSIUM CHLORIDE PO; -QUET300T19 PO; +QUET400T54 PO; +RISP2TAB85 PO; +SENN-263 PO; +UBID100C16 PO; +VITAMIN D3 PO; +albuterol 2.5 MG/3 ML nebule NEB ONE; +ceFAZolin inj. 2,000 MG in dextrose 5%-water 100 ML IV ONE; +famotidine 20mg tablet PO ONE; +ringers solution, lacted 1,000 ML IV SCH
[2021-12-26] MEDS ORDERED: LIDOcaine 1% 30ml preserv. free vial ONE (06:43)
[2021-12-26] MEDS ORDERED: BUPIVAcaine 0.5% inj/PF 30 ML ONE ×2 (06:43→06:55)
[2021-12-26] MEDS ORDERED: BUPIVACAINE liposomal/PF 13.3 MG/ML vial IM ONE (06:55)
[2021-12-26] MEDS ORDERED: sevoflurane 250ml liquid IH ONE (08:20)
[2021-12-26] MEDS ORDERED: fentaNYL /PF 50mcg/ml 5ml ampule ONE (08:24)
[2021-12-26] MEDS ORDERED: BUPIVAcaine 0.5% inj/PF 30 ml vial IJ ONE (08:50)
[2021-12-26] MEDS ORDERED: LIDOcaine 2% (20mg/ml) 5ml vial ONE (09:31)
[2021-12-26] MEDS ORDERED: propofol inj 20 ML IV ONE (09:31)
[2021-12-26] MEDS ORDERED: rocuronium 10mg/ml inj IV ONE (09:31)
[2021-12-26] MEDS ORDERED: sugammadex 200mg/2ml injection IV ONE (09:45)
--- NOTE | 2021-12-26 09:47 | NUR ---
Received from OR via [facility], accompanied by Anesthesiologist DR LOPEZ and report given by Anesthesiologist. ET TUBE IN PLACE, PT UNRESPONSIVE, BREATHING OVER THE TUBE WITH 15L O2 MASK AT END OF TUBE. FELISHA. DAVI WARNER. IV PATENT. SKIN PINK WARM AND DRY Addendum: 12/26/21 at 1008 by Mikaela Herrera RN Amended: Links added.
[2021-12-26] MEDS ORDERED: oxyCODONE/APAP 10/325mg tablet PO PRN (09:55)
--- NOTE | 2021-12-26 10:06 | NUR ---
VSS. PT COUGHED OUT ET TUBE. SWALLOWING ON HIS OWN. AIRWAY CLEAR. O2SAT WNL. EYES CLOSED, DOES NOT RESPOND WHEN SPOKEN TO, DOES RESPOND TO PAINFUL STIMULI BY DR LOPEZ BY LIFTING UP HIS HAND THEN RETURNS TO SLUMBER
[2021-12-26] MEDS ORDERED: ringers solution, lacted 1,000 ML IV SCH (10:10)
[2021-12-26] MEDS ORDERED: morphine 2 MG/ML inj. syringe IV PRN (10:10)
[2021-12-26] MEDS ORDERED: meperidine/PF 25mg/ml syringe IV PRN ×3 (10:10)
[2021-12-26] MEDS ORDERED: proCHLORperazine 10 MG/2 ml inj IV PRN (10:10)
[2021-12-26] MEDS ORDERED: morphine 4 MG/ML inj SYRINge IV PRN (10:10)
[2021-12-26] MEDS ORDERED: ondansetron/PF 4mg/2ml inj IV PRN (10:10)
[2021-12-26] MEDS ORDERED: glycopyrrolate 0.2mg/ml inj ONE (10:14)
[2021-12-26] MEDS ORDERED: dexamethasone sod phosphate 4mg/ml inj. ONE (10:14)
[2021-12-26] MEDS ORDERED: neostigmine methylsulfate 1 MG/ML 10ml vial ONE (10:14)
[2021-12-26] MEDS ORDERED: ondansetron/PF 4mg/2ml inj ONE (10:14)
--- NOTE | 2021-12-26 11:00 | NUR ---
PT CONTINUES TO BE SLEEPY. WILL LIFT UP HEAD AND OCCASIONALLY OPEN EYES. DOES NOT FOLLOW SIMPLE COMMANDS, YET SMILES WHEN SPOKEN TO. SPOKE WITH VANESA IN THE WAITING ROOM, SHE STATES PT HAS A HISTORY OF SLOWNESS TO AWAKEN AFTER SURGERY. DAVI WARNER. VSS ON ROOM AIR
--- NOTE | 2021-12-26 11:37 | NUR ---
VSS. AWAKE, EYES OPEN, RESPONDING APPROPRIATELY TO COMMANDS. MIGUEL SIPS PO FLUIDS. ABD BINDER CDI.
--- NOTE | 2021-12-26 13:07 | NUR ---
PT WAS UNABLE TO VOID. BLADDER SCAN WITH 750 MLS PRESENT. PER MAURICE MEDINA'S ORDER, PT STRAIGHT CATH'D USING STERILE TECHNIQUE WITH FR14 CATHETER. RETURNS WITH 1100MLS CLEAR YELLOW URINE. DC INSTRUCTIONS REVIEWED WITH PT AND WHO VERBALIZES UNDERSTANDING. STATES HE HAD DIFFICULTY VOIDING AFTER HIS LAST SURGERY AND WILL MONITOR CAREFULLY AT HOME. ABD SOFT WITH BANDAIDS X3 CDI. PT STATES READINESS TO GO HOME. AMBULATES WELL AND VERBALIZES ADEQUATE PAIN RELIEF. IV DC'D WITH CANNULA INTACT AND DSG APPLIED. DC VIA W/C WITH WALLET TO PVT AUTO WITH TO RECEIVE. Addendum: 12/26/21 at 1321 by Mikaela Herrera RN Amended: Links added.
== END 2021-12-26 13:07 | disposition home or self-care (01) ==
LOC: PAS 06:09
PROVIDERS: ATTEND Surgery
DX: K42.9 Umbilical hernia without obstruction or gangrene (principal); M62.08 Separation of muscle (nontraumatic), other site; J45.909 Unspecified asthma, uncomplicated; F41.9 Anxiety disorder, unspecified; E03.9 Hypothyroidism, unspecified; F31.9 Bipolar disorder, unspecified; G43.909 Migraine, unspecified, not intractable, without status migrainosus; G47.33 Obstructive sleep apnea (adult) (pediatric); F25.9 Schizoaffective disorder, unspecified; K21.9 Gastro-esophageal reflux disease without esophagitis; N40.0 Benign prostatic hyperplasia without lower urinary tract symptoms; M19.90 Unspecified osteoarthritis, unspecified site; E11.9 Type 2 diabetes mellitus without complications; D80.6 Antibody deficiency with near-normal immunoglobulins or with hyperimmunoglobulinemia; E66.01 Morbid (severe) obesity due to excess calories; Z68.37 Body mass index [BMI] 37.0-37.9, adult; Z86.19 Personal history of other infectious and parasitic diseases; Z88.2 Allergy status to sulfonamides; Z88.8 Allergy status to other drugs, medicaments and biological substances; Z79.899 Other long term (current) drug therapy; Z20.822 Contact with and (suspected) exposure to COVID-19; Z98.1 Arthrodesis status; Z98.890 Other specified postprocedural states; Z87.891 Personal history of nicotine dependence
CPT/HCPCS: 36415; 49652; 64488; 80053; 82948; 85025; 93005; C1781; C9290; J0690; J1100; J2405; J2704; J2710; J3010; J3490; J7030; J7060; J7120; S0020; U0003; U0005; Z7506; Z7508; Z7512; A4215; A4618

== ENCOUNTER 2022-01-23 13:21 | Emergency (ER) | payer MEDICARE, MEDICAID ==
[~2022-01-23] VITALS: Ht 170.2 cm; Wt 115.0 kg
[~2022-01-23 13:21] MED LIST changes: -albuterol 2.5 MG/3 ML nebule NEB ONE; -ceFAZolin inj. 2,000 MG in dextrose 5%-water 100 ML IV ONE; -famotidine 20mg tablet PO ONE; -ringers solution, lacted 1,000 ML IV SCH
[2022-01-23 14:36] LABS: BASOPHILS % (AUTO) 0.4 % (0-1); EOSINOPHILS # (AUTO) 0.4 X10'3 (0-0.9); HEMATOCRIT 37.8 % (42.0-52.0); HEMOGLOBIN 12.9 g/dl (14.0-17.9); LYMPHOCYTES % (AUTO) 32.5 % (21-51); MEAN CORPUSCULAR HGB CONC 34.1 g/dL (33.0-36.5); MEAN CORPUSCULAR VOLUME 79.3 FL (78-98); MEAN PLATELET VOLUME 7.9 FL (7.4-10.4); MONOCYTES # (AUTO) 0.8 X10'3 (0-0.9); MONOCYTES % (AUTO) 8.4 % (2-12); NEUTROPHILS # (AUTO) 5.1 X10'3 (1.8-7.7); NEUTROPHILS % (AUTO) 54.7 % (42-75); PLATELET COUNT 199 X10'3 (140-440); RED BLOOD COUNT 4.76 X10'6 (4.70-6.10); RED CELL DISTRIBUTION WIDTH 14.4 % (11.5-14.5); WHITE BLOOD COUNT 9.3 X10'3 (4.5-11.0)
[2022-01-23 14:50] LABS: ALANINE AMINOTRANSFERASE 17 U/L (12-78); ALBUMIN 4.1 G/DL (3.4-5.0); ALBUMIN/GLOBULIN RATIO 1.1 (1.1-1.5); ALKALINE PHOSPHATASE 115 IU/L (46-116); AMYLASE 51 U/L (25-115); ANION GAP 10 (8-16); ASPARTATE AMINO TRANSFERASE 54 U/L (10-37); BILIRUBIN,TOTAL 0.3 MG/DL (0.1-1.0); BLOOD UREA NITROGEN 11 MG/DL (7-18); BUN/CREATININE RATIO 11.3 (5.4-32.0); CALCIUM 8.7 MG/DL (8.5-10.1); CHLORIDE 102 MMOL/L (99-107); CREATININE 0.97 MG/DL (0.60-1.10); GLUCOSE 174 MG/DL (70-104); LIPASE 142 U/L (73-393); SODIUM 137 MMOL/L (135-145); TOTAL CARBON DIOXIDE 25.5 MMOL/L (24-32); TOTAL PROTEIN 7.8 G/DL (6.4-8.2); eGFR 81 ML/MIN
[2022-01-23 15:05] LABS: CLARITY,URINE CLEAR (Clear); COLOR,URINE YELLOW (Yellow); GLUCOSE, URINE NEGATIVE (Neg); KETONES,URINE NEGATIVE (Neg); LEUKOCYTE ESTERASE ,URINE NEGATIVE (Neg); NITRITES, URINE NEGATIVE (Neg); OCCULT BLOOD,URINE TRACE-INTACT (Neg); PH,URINE 6.5 (4.8-8.0); PROTEIN,URINE NEGATIVE (Neg); UROBILINOGEN,URINE 0.2 E.U/dL (0.2-1.0)
[2022-01-23 15:15] LABS: UA COLLECTION TYPE NON-SPECIFIED
[2022-01-23 15:20] LABS: BACTERIA,URINE NONE SEEN /HPF (Neg); RBC,URINE 0-2 /HPF (0-2); SQUAMOUS EPITHELIAL CELL,UR NONE SEEN /LPF (FEW); WBC,URINE NONE SEEN /HPF (0-4)
[2022-01-23] MEDS ORDERED: POLY119P2 PO (16:17)
[2022-01-23 16:37] VITALS: BP 138/98
== END 2022-01-23 16:38 | disposition home or self-care (01) ==
LOC: ER 13:22
DX: K59.00 Constipation, unspecified (principal); R10.84 Generalized abdominal pain; G89.29 Other chronic pain; Z86.19 Personal history of other infectious and parasitic diseases; Z72.89 Other problems related to lifestyle; Z88.2 Allergy status to sulfonamides; Z88.8 Allergy status to other drugs, medicaments and biological substances; Z79.899 Other long term (current) drug therapy
CPT/HCPCS: 36415; 80053; 81001; 82150; 83690; 85025; 99283

== ENCOUNTER 2022-11-14 14:02 | Emergency (ER) | payer MEDICARE, MEDICAID ==
[~2022-11-14] VITALS: Ht 165.1 cm; Wt 101.4 kg
[~2022-11-14 14:02] MED LIST changes: -BENZ1TAB7 PO; +COG1T PO; +POLY119P2 PO
[2022-11-14] MEDS ORDERED: normal saline 1000ML IV soln IVB ONE (14:25)
[2022-11-14] MEDS ORDERED: insulin regular, human U-100 3ml vial - multi-dose IV ONE (14:25)
[2022-11-14 14:36] LABS: BASOPHILS % (AUTO) 0.2 % (0-1); EOSINOPHILS # (AUTO) 0.1 X10'3 (0-0.9); EOSINOPHILS % (AUTO) 0.8 % (0-6); HEMATOCRIT 42.8 % (42.0-52.0); HEMOGLOBIN 14.7 g/dl (14.0-17.9); LYMPHOCYTES % (AUTO) 22.1 % (21-51); MEAN CORPUSCULAR HEMOGLOBIN 27.2 PG (27.0-31.0); MEAN CORPUSCULAR HGB CONC 34.3 g/dL (33.0-36.5); MEAN CORPUSCULAR VOLUME 79.3 FL (78-98); MEAN PLATELET VOLUME 8.9 FL (7.4-10.4); MONOCYTES # (AUTO) 0.7 X10'3 (0-0.9); MONOCYTES % (AUTO) 7.4 % (2-12); NEUTROPHILS # (AUTO) 6.3 X10'3 (1.8-7.7); NEUTROPHILS % (AUTO) 69.5 % (42-75); PLATELET COUNT 190 X10'3 (140-440); RED BLOOD COUNT 5.39 X10'6 (4.70-6.10); RED CELL DISTRIBUTION WIDTH 14.2 % (11.5-14.5); WHITE BLOOD COUNT 9.1 X10'3 (4.5-11.0)
[2022-11-14 14:52] LABS: ALANINE AMINOTRANSFERASE 29 U/L (12-78); ALBUMIN 4.6 G/DL (3.4-5.0); ALBUMIN/GLOBULIN RATIO 1.2 (1.1-1.5); ALKALINE PHOSPHATASE 174 IU/L (46-116); ANION GAP 10 (8-16); ASPARTATE AMINO TRANSFERASE 33 U/L (10-37); BILIRUBIN,TOTAL 0.6 MG/DL (0.1-1.0); BLOOD UREA NITROGEN 7 MG/DL (7-18); CALCIUM 10.6 MG/DL (8.5-10.1); CHLORIDE 86 MMOL/L (99-107); CREATININE 1.16 MG/DL (0.60-1.10); MAGNESIUM 1.8 MG/DL (1.5-2.4); SODIUM 127 MMOL/L (135-145); TOTAL CARBON DIOXIDE 30.8 MMOL/L (24-32); TOTAL PROTEIN 8.4 G/DL (6.4-8.2); eGFR 66 ML/MIN
[2022-11-14 15:01] LABS: GLUCOSE 624 MG/DL (70-104)
[2022-11-14] MEDS ORDERED: METF-900 PO (17:42)
[2022-11-14] MEDS ORDERED: metFORMIN 500mg tablet PO ONE (17:45)
--- NOTE | 2022-11-14 18:11 | NUR ---
RN ATTEMPTED IV MULTIPLE TIMES AND UNABLE TO OBTAIN ONE. NOTIFIED DR WELLINGTON. DR WELLINGTON WILL MAKE ATTEMPT.
[2022-11-14] MEDS ORDERED: insulin regular, human 10 units/0.1 ml syringe SQ ONE (18:20)
--- NOTE | 2022-11-14 18:24 | NUR ---
MD UNSUCCESSFUL AT IV ATTEMPT WELL. STATES TO GIVE 1L WATER BY MOUTH AND 20 UNITS INSULIN SUB Q
[2022-11-14 21:00] VITALS: BP 139/96
== END 2022-11-14 21:08 | disposition home or self-care (01) ==
LOC: ER 14:02
DX: E11.65 Type 2 diabetes mellitus with hyperglycemia (principal); M54.9 Dorsalgia, unspecified; F31.9 Bipolar disorder, unspecified; F20.9 Schizophrenia, unspecified; Z88.2 Allergy status to sulfonamides; Z88.8 Allergy status to other drugs, medicaments and biological substances; Z79.899 Other long term (current) drug therapy; Z79.1 Long term (current) use of non-steroidal anti-inflammatories (NSAID); Z79.2 Long term (current) use of antibiotics
CPT/HCPCS: 36415; 80053; 82948; 83735; 85025; 99284; J1815; J7030

== ENCOUNTER 2023-01-01 10:23 | Emergency (ER) | payer MEDICARE, MEDICAID ==
[~2023-01-01] VITALS: Ht 167.6 cm; Wt 100.0 kg
[~2023-01-01 10:23] MED LIST changes: +BENZ1TAB93 PO; -COG1T PO
[2023-01-01 10:31] VITALS: BP 138/80
[2023-01-01] MEDS ORDERED: acetaminophen 325mg tablet PO ONE (11:00)
[2023-01-01] MEDS ORDERED: ketorolac trometh inj. 60 MG/2 ML VIAL IM ONE (11:03)
--- NOTE | 2023-01-01 11:12 | NUR ---
PT WENT TO XRAY
== END 2023-01-01 13:48 | disposition home or self-care (01) ==
LOC: ER 10:24
DX: M54.59 Other low back pain (principal); F31.9 Bipolar disorder, unspecified; G89.29 Other chronic pain; F20.9 Schizophrenia, unspecified; Z88.2 Allergy status to sulfonamides; Z88.8 Allergy status to other drugs, medicaments and biological substances; Z79.899 Other long term (current) drug therapy; Z79.1 Long term (current) use of non-steroidal anti-inflammatories (NSAID); Z79.2 Long term (current) use of antibiotics; V89.2XXA Person injured in unspecified motor-vehicle accident, traffic, initial encounter; Y93.89 Activity, other specified; Y92.89 Other specified places as the place of occurrence of the external cause; Y99.8 Other external cause status
CPT/HCPCS: 72100; 96372; 99283; J1885

== ENCOUNTER 2023-08-04 13:28 | Emergency (ER) | payer MEDICARE, MEDICAID ==
[~2023-08-04] VITALS: Ht 167.6 cm; Wt 92.9 kg
[2023-08-04 15:08] LABS: BASOPHILS % (AUTO) 0.4 % (0-1); EOSINOPHILS # (AUTO) 0.2 X10'3 (0-0.9); EOSINOPHILS % (AUTO) 1.8 % (0-6); HEMATOCRIT 40.6 % (42.0-52.0); HEMOGLOBIN 13.8 g/dl (14.0-17.9); LYMPHOCYTES # (AUTO) 2.5 X10'3 (1.1-4.8); LYMPHOCYTES % (AUTO) 23.4 % (21-51); MEAN CORPUSCULAR HEMOGLOBIN 26.6 PG (27.0-31.0); MEAN CORPUSCULAR VOLUME 78.2 FL (78-98); MEAN PLATELET VOLUME 7.8 FL (7.4-10.4); MONOCYTES # (AUTO) 0.9 X10'3 (0-0.9); MONOCYTES % (AUTO) 8.6 % (2-12); NEUTROPHILS % (AUTO) 65.8 % (42-75); PLATELET COUNT 216 X10'3 (140-440); RED BLOOD COUNT 5.19 X10'6 (4.70-6.10); RED CELL DISTRIBUTION WIDTH 14.6 % (11.5-14.5); WHITE BLOOD COUNT 10.6 X10'3 (4.5-11.0)
[2023-08-04 15:20] LABS: ALANINE AMINOTRANSFERASE 12 U/L (12-78); ALBUMIN 4.3 G/DL (3.4-5.0); ALBUMIN/GLOBULIN RATIO 1.2 (1.1-1.5); ALKALINE PHOSPHATASE 111 IU/L (46-116); ANION GAP 9 (8-16); ASPARTATE AMINO TRANSFERASE 24 U/L (10-37); BILIRUBIN,TOTAL 0.6 MG/DL (0.1-1.0); BLOOD UREA NITROGEN 13 MG/DL (7-18); BUN/CREATININE RATIO 14.9 (10.0-20.0); CHLORIDE 99 MMOL/L (99-107); CREATININE 0.87 MG/DL (0.60-1.10); GLUCOSE 101 MG/DL (70-104); POTASSIUM 3.9 MMOL/L (3.5-5.1); SODIUM 139 MMOL/L (135-145); TOTAL CARBON DIOXIDE 30.6 MMOL/L (24-32); eCRCL 87 ML/MIN; eGFR > 90 ML/MIN
[2023-08-04 16:44] VITALS: BP 116/84; PULSE 96; TEMP 98.4; O2SAT 96
[2023-08-04] MEDS ORDERED: ketorolac trometh inj. 60 MG/2 ML VIAL IM ONE (18:20)
[2023-08-04] MEDS ORDERED: IBUP-1984 PO (18:25)
[2023-08-04] MEDS ORDERED: CYCL-1 PO (18:25)
[2023-08-04 18:33] VITALS: RESP 16
== END 2023-08-04 18:40 | disposition home or self-care (01) ==
LOC: ER 13:28
DX: S33.5XXA Sprain of ligaments of lumbar spine, initial encounter (principal); G89.29 Other chronic pain; M54.9 Dorsalgia, unspecified; X58.XXXA Exposure to other specified factors, initial encounter; Y93.89 Activity, other specified; Y92.89 Other specified places as the place of occurrence of the external cause; Y99.8 Other external cause status
CPT/HCPCS: 36415; 72131; 74176; 80053; 85025; 96372; 99285; J1885

== ENCOUNTER 2024-02-25 14:52 | Outpatient (CLI) | payer MEDICARE, MEDICAID ==
[~2024-02-25 14:52] MED LIST changes: -BUPR-317 PO; +BUPR-561 PO; +CYCL-1 PO; -ESOM20CA38 PO; +ESOM20CA50 PO; +RISP-32 PO; -RISP2TAB85 PO
== END 2024-02-25 23:59 | disposition home or self-care (01) ==
LOC: RAD 14:52
PROVIDERS: ATTEND Psychiatry & Neurology Psychiatry
DX: R00.0 Tachycardia, unspecified (principal)
CPT/HCPCS: 93005